=== PATIENT | female | born 1975 | race American Indian/Alaskan Native ===

== ENCOUNTER 2018-10-20 08:58 | Emergency (ER) | payer BC ==
[2018-10-20 09:13] VITALS: BP 99/47
[2018-10-20] MEDS ORDERED: TYLENOL PO ONE (09:17)
--- NOTE | 2018-10-20 10:06 | XRay Report ---
PROCEDURE: XR WRIST 3+V LT TECHNIQUE: 3 views of the left wrist. HISTORY: left arm pain s/p fall COMPARISON: None FINDINGS: There is a comminuted distal radial intra-articular fracture. There is mild posterior displacement of posterior medial fragment. IMPRESSION: Comminuted distal radial fracture. This document is electronically signed by Elvira Landeros MD., October 20 2018 10:05:02 AM ET
--- NOTE | 2018-10-20 10:08 | XRay Report ---
PROCEDURE: XR HAND 2V LT TECHNIQUE: 2 views of the left hand. HISTORY: left arm pain s/p fall COMPARISON: None FINDINGS: There is a comminuted intra-articular fracture of the distal radius with mildly displaced posterior m edial fragment. No additional fracture seen involving left hand. There is no dislocation. IMPRESSION: Comminuted distal radial fracture. This document is electronically signed by Elvira Landeros MD., October 20 2018 10:06:16 AM ET
[2018-10-20] MEDS ORDERED: NORCO 10/325 PO ONE (10:27)
--- NOTE | 2018-10-20 10:34 | Emergency Department Report ---
ED Upper Extremity Inj HPI - General Chief Complaint: Extremity Injury, Upper Stated Complaint: LT INJURY/FALL Time Seen by Provider: 10/20/18 09:57 Source: patient Mode of arrival: Ambulatory Limitations: No Limitations - History of Present Illness Initial Comments: This is a 43-year-old female nontoxic, well nourished in appearance, no acute signs of distress presents to the ED with c/o of left wrist pain. Patient stated that she had a ground level fall and tried to brick her fall. Patient denies any other trauma. Denies any head or neck trauma or back trauma. Patient denies any numbness, tingling, fever, chills, nausea, vomiting, chest pain, shortness of breath, headache, stiff neck. Patient denies any joint swelling or joint redness. Patient denies decreased range of motion. Patient stated has decreased gait due to pain. Patient denies any allergies or significant past medical history. MD Complaint: Injury to:: left, wrist -: This morning Other Extremity Injury: Wrist: Left Other Injuries: none Place: outdoors Severity scale (0 -10): 8 Improves With: immobilization Worsens With: movement of extremity Context: fall Associated Symptoms: denies other symptoms. denies: weakness, numbness, neck pain, suspects foreign body, nausea/vomiting, heard/felt popping sensat - Related Data Previous Rx's Medication Instructions Recorded Last Taken Type Acetaminophen/Codeine [Tylenol 1 tab PO Q6H PRN #12 tab 10/20/18 Unknown Rx /Codeine # 3 tab] Ibuprofen [Motrin] 600 mg PO Q8H PRN #20 tablet 10/20/18 Unknown Rx Allergies Allergy/AdvReac Type Severity Reaction Status Date / Time No Known Allergies Allergy Verified 10/20/18 09:09 ED Review of Systems ROS: Stated complaint: LT INJURY/FALL Other details as noted in HPI Constitutional: denies: chills, fever Eyes: denies: eye pain, eye discharge, vision change ENT: denies: ear pain, throat pain Respiratory: denies: cough, shortness of breath, wheezing Cardiovascular: denies: chest pain, palpitations Endocrine: no symptoms reported Gastrointestinal: denies: abdominal pain, nausea, diarrhea Genitourinary: denies: urgency, dysuria, discharge Musculoskeletal: denies: back pain, joint swelling, arthralgia Skin: denies: rash, lesions Neurological: denies: headache, weakness, paresthesias Psychiatric: denies: anxiety, depression Hematological/Lymphatic: denies: easy bleeding, easy bruising ED Past Medical Hx - Past Medical History Hx Hypertension: Yes Hx Asthma: Yes - Surgical History Additional Surgical History: breast reduction, x1, larparoscopy - Social History Smoking Status: Never Smoker Substance Use Type: Alcohol - Medications Home Medications: Home Medications Medication Instructions Recorded Confirmed Last Taken Type Acetaminophen/Codeine [Tylenol 1 tab PO Q6H PRN #12 tab 10/20/18 Unknown Rx /Codeine # 3 tab] Ibuprofen [Motrin] 600 mg PO Q8H PRN #20 tablet 10/20/18 Unknown Rx ED Physical Exam - General Limitations: No Limitations General appearance: alert, in no apparent distress - Head Head exam: Present: atraumatic, normocephalic - Eye Eye exam: Present: normal appearance - Neck Neck exam: Present: normal inspection, full ROM - Extremities Exam Extremities exam: Present: normal inspection, full ROM, tenderness, normal capillary refill. Absent: joint swelling - Expanded Upper Extremity Exam Left General: Present: normal inspection Shoulder Exam: Present: normal inspection, full ROM. Absent: tenderness, swelling Upper Arm exam: Present: normal inspection, full ROM. Absent: tenderness, swelling Elbow exam: Present: normal inspection, full ROM. Absent: tenderness, swelling Forearm Wrist exam: Present: normal inspection, full ROM. Absent: tenderness, swelling Hand Wrist exam: Present: normal inspection, full ROM, tenderness, swelling. Absent: abrasion, laceration, ecchymosis, deformity, crepidus, dislocation, erythema, amputation, nail avulsion, subungual hematoma Vascular: Present: vascular compromise, normal capillary refill - Back Exam Back exam: Present: normal inspection, full ROM. Absent: tenderness, CVA tenderness (R), CVA tenderness (L), muscle spasm, paraspinal tenderness, vertebral tenderness, rash noted - Neurological Exam Neurological exam: Present: alert, oriented X3, normal gait - Psychiatric Psychiatric exam: Present: normal affect, normal mood - Skin Skin exam: Present: warm, dry, intact, normal color. Absent: rash ED Course Vital Signs 10/20/18 10/20/18 09:09 09:26 Temperature 97.5 F L Pulse Rate 67 Respiratory 16 18 Rate Blood Pressure 99/47 O2 Sat by Pulse 97 Oximetry - Reevaluation(s) Reevaluation #1: 10/20/18 10:34 Patient is speaking in full sentences with no signs of distress noted. ED Medical Decision Making - Medical Decision Making This is a 43-year-old female that presents with left radial fracture. Patient is stable and was examined by me. I referred patient to an orthopedic doctor for further evaluation for possible MRI. X-ray has been obtained and dictated by the radiologist. Patient is notified of the x-ray report with noted by the patient. Patient received a sugar tong's short arm splint and a shoulder sling. Post splint assessment: neurovasular intact; normal cap refill <2 second; normal sensation; denies decreaed sensation; normal ROM of digits. Patient was instructed to RICE therapy. Patient received [place] for pain. Patient's family member is currently present at the bedside and stated that the patient home a fter discharged to the possible drowsiness of Tylenol. Patient is discharged with Motrin. At time of discharge, the patient does not seem toxic or ill in appearance. No acute signs of distress noted. Patient agrees to discharge treatment plan of care. No further questions noted by the patient. Critical care attestation.: If time is entered above; I have spent that time in minutes in the direct care of this critically ill patient, excluding procedure time. ED Disposition Clinical Impression: Left radial head fracture Qualifiers: Encounter type: initial encounter Fracture type: closed Fracture alignment: nondisplaced Qualified Code(s): S52.125A - Nondisplaced fracture of head of left radius, initial encounter for closed fracture Disposition: DC-01 TO HOME OR SELFCARE Is pt being admited?: No Does the pt Need Aspirin: No Condition: Stable Instructions: Acetaminophen/Codeine (By mouth), Wrist Fracture in Adults (ED), Splint Care (ED) Additional Instructions: Follow-up with a orthopedic doctor in 3-5 days or if symptoms worsen and continue return to emergency room as soon as possible. Do not operate any machinery while taking Tylenol with codeine as this may cause drowsiness. Prescriptions: Ibuprofen [Motrin] 600 mg PO Q8H PRN #20 tablet PRN Reason: Pain Acetaminophen/Codeine [Tylenol /Codeine # 3 tab] 1 tab PO Q6H PRN #12 tab PRN Reason: Pain , Severe (7-10) Referrals: JOSE M CALDERÓN MD [Primary Care Provider] - 3-5 Days PRIMARY CAREMD [Referring] - 3-5 Days CHIRAG GUERRA MD [Staff Physician] - 3-5 Days [facility] [Outside] - 3-5 Days Forms: Work/School Release Form(ED)
== END 2018-10-20 11:33 | disposition home or self-care (01) ==
LOC: ED 08:58
DX: S52.122A Displaced fracture of head of left radius, initial encounter for closed fracture (principal); I10 Essential (primary) hypertension; J45.909 Unspecified asthma, uncomplicated; Z98.890 Other specified postprocedural states; W19.XXXA Unspecified fall, initial encounter; Y93.89 Activity, other specified; Y92.410 Unspecified street and highway as the place of occurrence of the external cause; Y99.8 Other external cause status

== ENCOUNTER 2021-01-01 10:40 | Emergency (ER) | payer BC, OTHER ==
[2021-01-01 10:58] VITALS: BP 155/93
[2021-01-01] MEDS ORDERED: IBUPROFEN 800 MG TAB PO ONE (11:05)
--- NOTE | 2021-01-01 11:05 | Emergency Department Report ---
ED Lower Extremity HPI - General Chief Complaint: Extremity Injury, Lower Stated Complaint: FELL/LEFT KNEE PAIN Time Seen by Provider: 01/01/21 10:59 Source: patient Mode of arrival: Ambulatory Limitations: No Limitations - History of Present Illness Initial Comments: 45-year-old female presents to the ER today with complaints of left knee pain. Patient states that she was walking at work when she tripped over a piece of wood and fell, landing on her left knee. She states that this incident occurred 1 week ago. She reports pain with ambulation and weightbearing. She states that the left knee feels numb but also feels like there is fluid in the knee. She has been taking [id number] Tylenol without much relief of the pain. She states that her job requires a lot of standing and walking and she has continued to work despite the injury. She denies any prior issues with her left knee. She reports no other symptoms at this time. MD Complaint: knee injury -: week(s) (1) - Related Data Previous Rx's Medication Instructions Recorded Last Taken Type Ibuprofen [Motrin] 800 mg PO Q8HR PRN #30 tablet 01/01/21 Unknown Rx traMADoL [Ultram] 50 mg PO Q6HR PRN #12 tablet 01/01/21 Unknown Rx Allergies Allergy/AdvReac Type Severity Reaction Status Date / Time No Known Allergies Allergy Verified 01/01/21 11:25 ED Review of Systems ROS: Stated complaint: FELL/LEFT KNEE PAIN Other details as noted in HPI Comment: All other systems reviewed and negative Constitutional: denies: chills, fever Eyes: denies: eye pain, eye discharge, vision change ENT: denies: ear pain, throat pain, dental pain, hearing loss, congestion Respiratory: denies: cough, shortness of breath, SOB with exertion, SOB at rest, wheezing Cardiovascular: denies: chest pain, palpitations, dyspnea on exertion, edema, syncope, paroxysmal nocturnal dyspnea Gastrointestinal: denies: abdominal pain, nausea, vomiting, diarrhea, constipation, hematemesis, hematochezia Genitourinary: denies: urgency, dysuria, frequency, hematuria, discharge, abnormal menses, dyspareunia Musculoskeletal: joint swelling, arthralgia Skin: denies: rash, lesions, change in color, change in hair/nails, pruritus Neurological: abnormal gait. denies: headache, weakness, numbness, paresthesias, confusion, vertigo Psychiatric: denies: anxiety, depression, auditory hallucinations, visual hallucinations, homicidal thoughts, suicidal thoughts Hematological/Lymphatic: denies: easy bleeding, easy bruising, swollen glands ED Past Medical Hx - Past Medical History Previous Medical History?: Yes Hx Hypertension: Yes Hx Asthma: Yes - Surgical History Past Surgical History?: Yes Additional Surgical History: breast reduction, x1, larparoscopy - Social History Smoking Status: Never Smoker Substance Use Type: None - Medications Home Medications: Home Medications Medication Instructions Recorded Confirmed Last Taken Type Ibuprofen [Motrin] 800 mg PO Q8HR PRN #30 tablet 01/01/21 Unknown Rx traMADoL [Ultram] 50 mg PO Q6HR PRN #12 tablet 01/01/21 Unknown Rx ED Physical Exam - General Limitations: No Limitations General appearance: alert, in no apparent distress, obese - Head Head exam: Present: atraumatic, normocephalic, normal inspection - Eye Eye exam: Present: normal appearance, PERRL, EOMI Pupils: Present: normal accommodation - Respiratory Respiratory exam: Present: normal lung sounds bilaterally. Absent: respiratory distress, wheezes, rales, rhonchi - Cardiovascular Cardiovascular Exam: Present: regular rate, normal rhythm, normal heart sounds - Expanded Lower Extremity Exam Left Knee exam: Present: tenderness (Mod ttp lateral anterior left knee). Absent: full ROM, swelling, abrasion, laceration, deformity, crepidus, dislocation, erythema Neuro vascular tendon exam: Present: no vascular compromise. Absent: motor deficit, sensory deficit Gait: Positive: observed and limited by pain (mild limping gait with ambulation) - Neurological Exam Neurological exam: Present: alert, oriented X3, CN II-XII intact - Psychiatric Psychiatric exam: Present: normal affect, normal mood - Skin Skin exam: Present: intact ED Course Vital Signs 01/01/21 10:54 Temperature 98.7 F Pulse Rate 74 Respiratory 18 Rate Blood Pressure 155/93 O2 Sat by Pulse 97 Oximetry ED Lower Extremity MDM - Radiology Data Radiology results: report reviewed Patient: STEVEN STEPHENS MR#: [id number] : 1975 Acct:[id number] Age/Sex: 45 / F ADM Date: 01/01/21 Loc: ED Attending Dr: Ordering Physician: LUCITA CLAY Date of Service: 01/01/21 Procedure(s): XR knee 3V LT Accession Number(s): [id number] cc: LUCITA CLAY Fluoro Time In Minutes: LEFT KNEE 3 VIEWS INDICATION / CLINICAL INFORMATION: knee pain s/p fall COMPARISON: None available. FINDINGS: BONES / JOINT(S): No acute fracture or subluxation. Mild DJD greatest at the patellofemoral joint. SOFT TISSUES: No significant abnormality. ADDITIONAL FINDINGS: None. Signer Name: Ulices Arambula MD Signed: 01/01/2021 11:34 AM Workstation Name: [id number] Transcribed By: ES Dictated By: Ulices Arambula MD Electronically Authenticated By: Ulices Arambula MD Signed Date/Time: 01/01/21 1134 DD/ 1133 TD/TT: Critical care attestation.: If time is entered above; I have spent that time in minutes in the direct care of this critically ill patient, excluding procedure time. ED Disposition Clinical Impression: Knee contusion, Left knee DJD Disposition: DC- TO HOME OR SELFCARE Is pt being admited?: No Does the pt Need Aspirin: No Condition: Stable Instructions: Osteoarthritis, Contusion Additional Instructions: I recommend that you use the ISAAK wrap as discussed. I recommend resting and elevating leg as often as possible for the next couple days. Take the motrin and the ultram as prescribed. Follow up with Ortho in 1 week if symptoms persist. Return to ED if worse. Prescriptions: Ibuprofen [Motrin] 800 mg PO Q8HR PRN #30 tablet PRN Reason: Pain traMADoL [Ultram] 50 mg PO Q6HR PRN #12 tablet PRN Reason: Pain Referrals: CHIRAG GUERRA MD [Staff Physician] - 7-10 days (insurance specialist) Forms: Work/School Release Form(ED) Time of Disposition: 11:44
--- NOTE | 2021-01-01 11:38 | XRay Report ---
LEFT KNEE 3 VIEWS INDICATION / CLINICAL INFORMATION: knee pain s/p fall COMPARISON: None available. FINDINGS: BONES / JOINT(S): No acute fracture or subluxation. Mild DJD greatest at the patellofemoral joint. SOFT TISSUES: No significant abnormality. ADDITIONAL FINDINGS: None. Signer Name: Ulices Arambula MD Signed: 01/01/2021 11:34 AM Workstation Name: [id number]
== END 2021-01-01 12:01 | disposition home or self-care (01) ==
LOC: ED 10:40
DX: S80.02XA Contusion of left knee, initial encounter (principal); M17.12 Unilateral primary osteoarthritis, left knee; J45.909 Unspecified asthma, uncomplicated; I10 Essential (primary) hypertension; Z98.890 Other specified postprocedural states; Z79.899 Other long term (current) drug therapy; W01.0XXA Fall on same level from slipping, tripping and stumbling without subsequent striking against object, initial encounter; Y93.89 Activity, other specified; Y92.89 Other specified places as the place of occurrence of the external cause; Y99.8 Other external cause status
CPT/HCPCS: 99283